=== PATIENT | female | born 1970 | race Caucasian/White ===

== ENCOUNTER 2017-12-03 16:19 | Emergency (ER) | payer BC ==
[2017-12-03] MEDS ORDERED: SODIUM CHLORIDE FLUSH 10ML SYR IVF ONE (17:00)
[2017-12-03 17:16] LABS: BASOPHILS # (AUTO) 0.03 x10^3/uL (0-0.1); BASOPHILS % (AUTO) 1 % (0-1); EOSINOPHILS # (AUTO) 0.17 x10^3/uL (0-0.4); EOSINOPHILS % (AUTO) 2 % (1-7); LYMPHOCYTES # (AUTO) 2.74 x10^3/uL (1-3.4); LYMPHOCYTES % (AUTO) 36 % (22-44); MD NO; MEAN CORPUSCULAR HEMOGLOBIN 28.1 pg (27.0-34.8); MEAN CORPUSCULAR VOLUME 85.3 fL (80-100); MEAN PLATELET VOLUME 7.8 fL (7.4-10.4); MONOCYTES # (AUTO) 0.51 x10^3/uL (0.2-0.8); MONOCYTES % (AUTO) 7 % (2-9); NEUTROPHILS # (AUTO) 4.16 x10^3/uL (1.8-6.8); NEUTROPHILS % (AUTO) 55 % (42-75); PLATELET COUNT 373 x10^3/uL (130-400); RED BLOOD COUNT 4.93 x10^6/uL (3.82-5.3); RED CELL DISTRIBUTION WIDTH 14.3 % (9.6-15.2)
[2017-12-03 17:27] LABS: ALBUMIN 3.9 g/dL (3.4-5.0); ANION GAP 10 mmol/L (5-15); CALCIUM 8.5 mg/dL (8.5-10.1); CHLORIDE 104 mmol/L (98-107)
[2017-12-03 17:34] LABS: CREATININE 0.65 mg/dL (0.55-1.02); TROPONIN I < 0.015 ng/mL (0.000-0.045)
[2017-12-03] MEDS ORDERED: ONDANSETRON 2MG/ML, 2ML IVPush ONE (18:00)
[2017-12-03] MEDS ORDERED: NITROGLYCERIN SINGLE TAB 0.4 MG SL PRN (18:00)
[2017-12-03] MEDS ORDERED: MORPHINE SULFATE 4 MG/ML, 1ML IVPush PRN (18:00)
[2017-12-03] MEDS ORDERED: PLEASE ENTER HEIGHT AND WEIGHT MC SCH (18:30)
[2017-12-03 20:16] VITALS: BP 133/81
[2017-12-03 21:10] LABS: TROPONIN I < 0.015 ng/mL (0.000-0.045)
== END 2017-12-03 21:56 | disposition home or self-care (01) ==
LOC: ED 19:04
DX: R07.89 Other chest pain (principal); Z87.891 Personal history of nicotine dependence
CPT/HCPCS: 36415; 71045; 80048; 82040; 83880; 84484; 85025; 93005; 99285